=== PATIENT | male | born 1940 | race Caucasian/White ===

== ENCOUNTER → 2017-11-23 | Outpatient (CLI) | payer MEDICARE, OTHER | END | disposition home or self-care (01) | LOC: PCVCCLINIC 11:48 | PROVIDERS: ATTEND Internal Medicine | DX: I25.10 Atherosclerotic heart disease of native coronary artery without angina pectoris (principal); R42 Dizziness and giddiness; I10 Essential (primary) hypertension; E78.5 Hyperlipidemia, unspecified; F17.210 Nicotine dependence, cigarettes, uncomplicated; Z88.0 Allergy status to penicillin | CPT/HCPCS: 93005; G0463 ==

== ENCOUNTER → 2017-11-24 | Outpatient (CLI) | payer MEDICARE, OTHER ==
--- NOTE | 2017-11-24 14:13 | PCVCIMAG ---
APPROVED REPORT Study performed: 11/24/2017 12:11:07 EXAM: Comprehensive 2D, Doppler, and color-flow Echocardiogram Patient Location: Echo lab Status: routine BSA: 2.02 HR: 76 bpmBP: 116/80 mmHg Rhythm: NSR Other Information Study Quality: Good Risk Factors: Cardiac Risk Factors: Hyperlipidemia Indications Dizziness and Vertigo CAD 2D Dimensions IVSd: 10.88 (7-11mm)LVOT Diam: 23.00 (18-24mm) LVDd: 44.02 mm PWd: 10.97 (7-11mm)Ascending Ao: 39.79 (22-36mm) LVDs: 28.37 (25-40mm) Left Atrium: 37.32 (27-40mm) Aortic Root: 35.02 mm LV Single Plane 4CH: 56.87 % LV Single Plane 2CH: 61.62 % Biplane EF: 61.0 % Volumes Left Atrial Volume (Systole) Single Plane 4CH: 45.24 mLSingle Plane 2CH: 76.40 mL LA ESV Index: 7.00 mL/m2 Aortic Valve AoV Peak Jeff.: 1.38 m/s AO Peak Gr.: 7.64 mmHgLVOT Max P.07 mmHg LVOT Max V: 0.88 m/s ANNA MARIE Vmax: 2.65 cm2 Mitral Valve E/A Ratio: 0.7 MV Decel. Time: 207.85 ms MV E Max Jeff.: 0.68 m/s MV A Jeff.: 1.02 m/s IVRT: 69.20 ms TDI E/Lateral E': 7.56E/Medial E': 11.33 Medial E' Jeff.: 0.06 m/s Lateral E' Jeff.: 0.09 m/s Pulmonary Valve PV Peak Jeff.: 0.86 m/sPV Peak Gr.: 2.99 mmHg Pulmonary Vein P Vein S: 0.25 m/sP Vein A: 0.33 m/s P Vein D: 0.52 m/sP Vein A Dur.: 96.9 msec P Vein S/D Ratio: 0.48 Tricuspid Valve TR Peak Jeff.: 2.58 m/sRAP Estimate: 7.00 mmHg TR Peak Gr.: 26.56 mmHg PA Pressure: 34.00 mmHg Left Ventricle The left ventricle is normal size. There is normal LV segmental wall motion. Borderline concentric left ventricular hypertrophy. Left ventricular systolic function is normal. The left ventricular ejection fraction is within the normal range. LVEF is 60-65%. Grade I - abnormal relaxation pattern. Right Ventricle The right ventricle is normal size. The right ventricular systolic function is normal. Atria The left atrium size is normal. The right atrium size is normal. Aortic Valve The aortic valve is normal in structure. Trace aortic regurgitation. There is no aortic valvular stenosis. Mitral Valve The mitral valve is normal in structure. Trace mitral regurgitation. No evidence of mitral valve stenosis. Tricuspid Valve The tricuspid valve is normal in structure. Trace tricuspid regurgitation. Pulmonary artery pressure is 34 mmHg. Pulmonic Valve The pulmonary valve is normal in structure. There is no pulmonic valvular regurgitation. Great Vessels The aortic root is normal in size. IVC is normal in size and collapses >50% with inspiration. Pericardium There is no pericardial effusion. <Conclusion> The left ventricle is normal size. LVEF is 60-65%. The aortic valve is normal in structure. Trace aortic regurgitation. The mitral valve is normal in structure. Trace mitral regurgitation. The tricuspid valve is normal in structure. Trace tricuspid regurgitation. Pulmonary artery pressure is 34 mmHg. The pulmonary valve is normal in structure. There is no pericardial effusion.
== END | disposition home or self-care (01) ==
LOC: PCVCIMAG 14:50
PROVIDERS: ATTEND Internal Medicine
DX: I25.10 Atherosclerotic heart disease of native coronary artery without angina pectoris (principal); R42 Dizziness and giddiness; E78.5 Hyperlipidemia, unspecified
CPT/HCPCS: 93306

== ENCOUNTER → 2017-12-13 | Outpatient (CLI) | payer MEDICARE, OTHER ==
[~2017-12-13] MED LIST: REGADENOSON 0.4 MG/5 ML DISP.SYRIN. IV ONE
--- NOTE | 2017-12-18 12:33 | PCVCIMAG ---
APPROVED REPORT Imaging Protocol: Rest Tc-99m/Stress Tc-99m 1 day Study performed: 12/13/2017 13:27:05 Indication: CAD, Dizzy Patient Location: Out-Patient Stress Nurse: Anupama Moon RN [place] Tech:Trinidad Goyo [facility] Ht: 5 ft 9 in Wt: 190 lbs BSA: 2.02 m2 HR: 99 bpm BP: 155/95 mmHg BMI: 28.05 Rhythm: NSR, RVCD Medical History Medical History: HTN, CAD, Current Smoker, Age Medications: Carvedilol, Amlodipine, Keppra, ASA, Zantac, Quinapril Allergies: PCN Pretest Chest Pain Characteristics: No chest pain Exercise History: Sedentary Physical Disabilities: Back, Hips, Knees, Balance Meds Held (24 hrs): Carvedilol Resting Data Rest SPECT myocardial perfusion imaging was performed in supine position 45 minutes following the intravenous injection of 10.9 mCi of Tc-99m Sestamibi. Time of rest injection: 1345 Date: 12/13/2017 Administration Route: IV Administration Site: Right AC Pharmacologic Stress Pharmacologic stress test was performed by injecting Regadenoson 0.4 mg IV push over 10-15 seconds immediately followed by the intravenous injection of 32.3 mCi of Tc-99m Sestamibi. Time of stress injection: 1415 Date: 12/13/2017 Administration Route: IV Administration Site: Right AC Gated Stress SPECT was performed 45 minutes after stress injection. The images were gated to evaluate regional wall motion and calculate left ventricular ejection fraction. Stress Test Details Stress Test: Pharmacologic stress testing performed using 0.4 mg of regadenoson per 5 mL given IV over 10 seconds. Reason for pharmacologic stress test: physical limitation. HRMax Heart Rate (APMHR): 143 bpm Resting HR: 99 bpmTarget HR (85% APMHR): 121 bpm Max HR Achieved: 116 bpm % of APMHR: 81 Recovery HR: 106 bpm BP Resting BP: 155/95 mmHg Recovery BP: 144/91 mmHg ECG Resting ECG: NSR, RVCD Stress ECG: ST, RVCD Recovery ECG: SR, RVCD Clinical Reason for Termination: Completed protocol Stress Symptoms: Lightheaded Exercise duration: 0 min 55 sec Symptoms resolved with caffeine. Stress ECG Conclusion 1. Adequate response to intravenous Lexiscan 2. Inadequate heart rate for ECG diagnosis Study Data Post stress, the left ventricular ejection was 53%.. SSS: 4 SRS: 3 SDS: 3 TID = 1.35. Perfusion There is a large area of severely reduced uptake in the entire segment of the inferior wall which is seen on the stress images as well as the resting images. This area thickens and moves normally and is most consistent with attenuation artifact. Nuclear Conclusion ECG Findings: non-diagnostic Clinical Findings: negative for ischemia Nuclear Findings: negative for ischemia Exercise Capacity: not assessed Left Ventricular Function: normal 1. Low risk study <Conclusion> 1. Adequate response to intravenous Lexiscan 2. Inadequate heart rate for ECG diagnosis
== END | disposition home or self-care (01) ==
LOC: PCVCIMAG 15:54
PROVIDERS: ATTEND Internal Medicine
DX: I25.10 Atherosclerotic heart disease of native coronary artery without angina pectoris (principal); R42 Dizziness and giddiness; F17.200 Nicotine dependence, unspecified, uncomplicated
CPT/HCPCS: 78452; 93017; A9500; J2785

== ENCOUNTER → 2017-12-21 | Outpatient (CLI) | payer MEDICARE, OTHER | END | disposition home or self-care (01) | LOC: PCVCCLINIC 10:20 | PROVIDERS: ATTEND Internal Medicine | DX: I25.10 Atherosclerotic heart disease of native coronary artery without angina pectoris (principal); I10 Essential (primary) hypertension; E78.5 Hyperlipidemia, unspecified; F17.210 Nicotine dependence, cigarettes, uncomplicated; Z79.82 Long term (current) use of aspirin; Z88.0 Allergy status to penicillin | CPT/HCPCS: G0463 ==